=== PATIENT | male | born 1965 | race Caucasian/White ===

== ENCOUNTER 2024-09-25 14:11 | Emergency (ER) | payer BC, SELFPAY ==
[2024-09-25 14:13] VITALS: BP 180/96
[2024-09-25 14:35] LABS: % Basophils 0.3 % (0-2); % Eosinophils 0.9 % (0-6); % Immature Granulocytes 0.3 % (0-0.5); % Lymphocytes 22.4 % (20.5-51.1); % Monocytes 8.5 % (1.7-9.3); % Neutrophils 67.6 % (42.2-75.2); Absolute Eosinophils 0.1 10^3/uL (0-0.7); Absolute Lymphocytes 1.6 10^3/uL (1.2-3.4); Absolute Monocytes 0.6 10^3/uL (0.1-0.6); Absolute Neutrophils 4.7 10^3/uL (1.4-6.5); Hemoglobin 15.6 g/dL (13.0-18.0); Mean Corp Hgb Conc. 37.1 g/dL (33.0-37.0); Mean Corpuscular Hgb 30.5 pg (27.0-31.0); Mean Corpuscular Volume 82.2 fL (80.0-94.0); Nucleated Red Blood Cells % 0 % (-); Platelet Count 195 10^3/uL (130-400); Red Blood Cell Count 5.11 10^6/uL (4.70-6.10); Red Cell Dist. Width 12.3 % (11.5-14.5)
[2024-09-25 14:56] LABS: ALT (SGPT) 39 U/L (0-50); AST (SGOT) 29 U/L (17-59); Albumin 4.6 g/dl (3.5-5.0); Alkaline Phosphatase 53 U/L (38-126); Blood Urea Nitrogen 11 mg/dl (9-20); Calcium 9.7 mg/dl (8.4-10.2); Carbon Dioxide 30 mmol/L (22-30); Chloride 105 mmol/L (98-107); Glucose 135 mg/dl (70-99); Potassium 3.6 mmol/L (3.5-5.1); Sodium 142 mmol/L (135-145); Total Bilirubin 1.3 mg/dl (0.2-1.3); Total Protein 7.7 g/dl (6.3-8.2); eGFR > 60.00
[2024-09-25 15:02] LABS: Troponin I < 0.012 ng/ml
[2024-09-25 17:44] LABS: Troponin I < 0.012 ng/ml
[2024-09-25 18:11] VITALS: BP 152/85
[2024-09-25] MEDS: PROTONIX 40 MG PO (18:11)
--- NOTE | 2024-09-25 23:26 | ED.GENMED ---
History of Present Illness
General
Chief Complaint: Cardiac Symptoms
Source: patient
Exam Limitations: none
Time Seen by Provider: 09/25/24 17:01
Nursing documentation reviewed up to this point in time: agreed with
History of Present Illness
History of Present Illness:
Patient to ED with complaint of burning sensation in his ches for the past week. Denies any SOB, vomitind, diaphoresis. Pain is intermittent, it does not radiate. He had similar pain in the past and was felt to be related to GERD. He was on
medication at one time but does not recall name. Brought self to ED for eval.
Past History
Past History
ED Past Medical History: GERD
Review of Systems
Review of Systems
Allergies reviewed?: Yes
All Other Systems: ROS reviewed and negative except as documented in HPI and ROS
Constitutional: Reports no symptoms
EENT: Reports no symptoms
Respiratory: Reports no symptoms
Cardiac: Reports chest pain
ABD/GI: Reports no symptoms
: Reports no symptoms
Musculoskeletal: Reports no symptoms
Skin: Reports no symptoms
Neurological: Reports no symptoms
Psychiatric: Reports no symptoms
Phy Exam
General Physical Exam
General Presentation: well appearing and no apparent distress
General age: appears stated age
General Skin: warm and dry
Cardiovascular Exam
Cardiovascular Exam: regular rate/rhythm and no edema
Pulmonary Exam
Pulmonary Exam: lungs clear and no respiratory distress
Gastrointestinal Exam
Gastrointestinal Exam: normal bowel sounds, non tender, soft, no organomegaly and non distended
Musculoskeletal Exam
Musculoskeletal Exam: full ROM
Skin Exam
Skin Exam: normal color, warm/dry and no rash
Psychiatric Exam
Psychiatric Exam: normal mood/affect
Course
Orders/Labs/Results
Orders:
Orders
09/25/24 14:13
EKG [Electrocardiogram (*1)] Urgent
Reason for Study: Chest Pain
EKG- Treatment ONCE
09/25/24 14:15
CR Chest - 2 Views Urgent
Comment:
Reason For Exam: chest pain
09/25/24 14:19
CMP [Comprehensive Metabolic Panel] Urgent
Complete Blood Count/With Diff Urgent
Troponin I Urgent
09/25/24 17:08
Troponin I Urgent
09/25/24 17:57
Pantoprazole [Protonix] 40 mg PO NOW STA
Abnormal Lab Results
09/25/24
14:19
MCHC 37.1 H g/dL
(33.0-37.0)
Glucose 135 H mg/dl
(70-99)
09/25/24 14:19
09/25/24 14:19
Vital Signs
Initial and Last Documented VS:
Initial Vital Signs
Temp Pulse Resp BP Pulse Ox
98.0 F 79 20 180/96 97
09/25/24 14:13 09/25/24 14:13 09/25/24 14:13 09/25/24 14:13 09/25/24 14:13
Last Documented Vital Signs
Temp Pulse Resp BP Pulse Ox
98.0 F 67 16 152/85 95
09/25/24 14:13 09/25/24 18:11 09/25/24 18:11 09/25/24 18:11 09/25/24 18:11
*Pulse Oximetry
Patient hypoxic: no
*EKG
Interpretation: normal
Rate: normal
Rhythm: sinus
*Critical Care Note
Total Time (30-74mins, 75-104mins- exclusive of procedures): Not Applicable
Update Note
Update Note:
Patient to ED with complaint of burning in his chest x 1 week. Sensation is intermittent and he reports he has been pain free in ED. No associated symptoms. Labs reviewed, no concerning findings. Troponin neg x 2 , EKG NSR, VSS. Doubtful for
cardiac event. WIll place on pantoprazole daily and he is agreeable to this. He is discharged home and will followup with PCP. Given instructions on s/s toreturn to ED and he is agreeable to plan.
ED Attending Note
-
Portions of this chart may have been created with voice recognition software.� Occasional wrong word or��sound alike� substitutions may have occurred due to the inherent limitations of voice recognition software.
Discharge Plan
Departure
Patient Disposition: Home (Routine Discharge)
Date of Disposition: 09/25/24
Time of Disposition: 17:58
Patient with high blood pressure during this ER visit?: No
Condition: Good
Covid-19: Not Applicable
Discharge Problem:
GERD (gastroesophageal reflux disease)
Instructions: Acid reflux and GERD in adults
Prescriptions:
New
pantoprazole 40 mg tablet,delayed release (DR/EC)
40 mg PO DAILY Qty: 30 0RF
Referrals:
Maria E Lewis DO [Family Provider, Family Practice] - Call in 1-3 days for appt
Interventions
Interventions:
*Risk Screen - Suicide Last Done: 09/25/24 15:47
*General Assessment Last Done: 09/25/24 14:13
*Neglect/Abuse Screening Last Done: 09/25/24 15:47
*ED- Fall Risk Assessment Last Done: 09/25/24 15:47
*ED COVID-19 Vaccine History Last Done: 09/25/24 15:47
*Nursing Disposition Last Done: 09/25/24 18:38
ED- Cardiac Assessment Last Done: 09/25/24 15:47
ED- Pulmonary Assessment Last Done: 09/25/24 15:47
Discharge Date and Time
Discharge Date/Time: 09/25/24 18:39
Print Language: BELARUSIAN
== END 2024-09-25 18:39 | disposition home or self-care (01) ==
LOC: EMR 14:11
PROVIDERS: Nurse Practitioner; EMERGENCY PHYSICIAN Emergency Medicine; FAMILY PHYSICIAN Family Medicine
DX: K21.9 Gastro-esophageal reflux disease without esophagitis (principal); Z79.899 Other long term (current) drug therapy
CPT/HCPCS: 99285; 71046; 80053; 84484; 85025; 93005